=== PATIENT | female | born 1985 | race American Indian/Alaskan Native ===

== ENCOUNTER 2017-02-19 21:01 | Emergency (ER) | payer SELFPAY ==
[2017-02-19 22:04] LABS: Basophils % (Auto) 0.3 % (0.0-1.8); Eosinophils % (Auto) 0.1 % (0.0-4.3); Hematocrit 37.2 % (30.3-42.9); Hemoglobin 11.9 gm/dl (10.1-14.3); Mean Corpuscular HGB Conc 32 % (30-34); Mean Corpuscular Volume 77 fl (79-97); Platelet Count 368 K/mm3 (140-440); Red Blood Count 4.82 M/mm3 (3.65-5.03); White Blood Count 13.5 K/mm3 (4.5-11.0)
[2017-02-19 22:05] LABS: Mean Corpuscular Hemoglobin 25 pg (28-32)
[2017-02-19 22:24] LABS: Alanine Aminotransferase 17 units/L (7-56); Albumin 4.2 g/dL (3.9-5); Albumin/Globulin Ratio 1.1 %; Alkaline Phosphatase 75 units/L (35-129); Anion Gap 22 mmol/L; BUN/Creatinine Ratio 12.85; Blood Urea Nitrogen 9 mg/dL (7-17); Calcium 9.2 mg/dL (8.4-10.2); Carbon Dioxide 23 mmol/L (22-30); Chloride 97.6 mmol/L (98-107); Glucose 128 mg/dL (65-100); Potassium 4.1 mmol/L (3.6-5.0); Sodium 138 mmol/L (137-145); Total Protein 8.1 g/dL (6.3-8.2)
[2017-02-19 22:56] LABS: Bilirubin,Urine NEG (Negative); Blood,Urine NEG (Negative); Ketones,Urine 20 mg/dL (Negative); Leukocyte Esterase,Urine NEG (Negative); Mucus,Urine 3+ /HPF; Nitrite,Urine NEG (Negative); WBC,Urine < 1.0 /HPF (0.0-6.0)
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
[2017-02-20] MEDS ORDERED: TYLENOL ONE (02:39)
[2017-02-20] MEDS ORDERED: TYLENOL PO ONE (02:41)
--- NOTE | 2017-02-20 07:27 | XRay Report ---
ROUTINE CHEST, TWO VIEWS: HISTORY: chest pain. The trachea, heart, mediastinal contour, and lung rojas are unremarkable. Scoliosis is noted. No acute bony injury. IMPRESSION: Scoliosis, otherwise, unremarkable chest films.
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
[2017-02-20 09:32] VITALS: BP 131/80
[2017-02-20] MEDS ORDERED: ZITHROMAX PO ONE (09:53)
[2017-02-20] MEDS ORDERED: DELTASONE PO ONE (09:54)
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
== END 2017-02-20 12:13 | disposition home or self-care (01) ==
LOC: ED 21:01
DX: S02.2XXA Fracture of nasal bones, initial encounter for closed fracture (principal); J06.9 Acute upper respiratory infection, unspecified; F31.9 Bipolar disorder, unspecified; F41.9 Anxiety disorder, unspecified; Z91.010 Allergy to peanuts; Z88.1 Allergy status to other antibiotic agents; Z91.018 Allergy to other foods; Y04.8XXA Assault by other bodily force, initial encounter; Y93.89 Activity, other specified; Y92.89 Other specified places as the place of occurrence of the external cause; Y99.8 Other external cause status
CPT/HCPCS: 36415; 70150; 70450; 71020; 80053; 81001; 84703; 85025; 99284; J7512